=== PATIENT | male | born 1990 | race Caucasian/White ===

== ENCOUNTER 2018-01-04 16:19 | Emergency (ER) | payer OTHER ==
[2018-01-04 18:05] VITALS: BP 148/81
[2018-01-04] MEDS ORDERED: Ketorolac INJ* 30 MG/ML 1 ML VIAL IM ONE (18:22)
[2018-01-04] MEDS ORDERED: Ondansetron ODT TAB* 4 MG PO ONE (18:22)
--- NOTE | 2018-01-04 18:25 | ED ---
Headache - HPI Summary HPI Summary: pt presents for evaluation of his headaches. pt states he gets headaches regularly. he has had them since he was little. he took motrin at noon. he states it helped a little. he works night shifts. he states that he thinks night shifts are making it worse. he also complained that he was concerned he is getting a sinus infection. he denies any congestion but he feels fullness to his face like when he gets a sinus infection. he denies any fever or chills or rhinorrhea. - History Of Current Complaint Chief Complaint: UCHeadache Stated Complaint: HEADACHE Hx Obtained From: Patient Onset/Duration: Gradual Onset Currently Pain Is: Mild Timing: Intermittent, Lasting: Character: Throbbing, Pressure, Typical Headache, Migraine Aggravating Factor: Other - lack of sleep Allevating Factors: Medication - motrin Associated Signs And Symptoms: Nausea - mild with headache - Allergies/Home Medications Allergies/Adverse Reactions: Allergies Allergy/AdvReac Type Severity Reaction Status Date / Time No Known Allergies Allergy Verified 01/04/18 17:59 Home Medications: Home Medications busPIRone TAB* [Buspar TAB*] 10 mg BID 01/04/18 [History Confirmed 01/04/18] PMH/Surg Hx/FS Hx/Imm Hx Previously Healthy: Yes Endocrine/Hematology History: Denies: Hx Anticoagulant Therapy Cardiovascular History: Denies: Hx Aneurysm Respiratory History: Denies: Hx Asthma GI History: Denies: Hx Cirrhosis History: Denies: Hx Acute Renal Failure Musculoskeletal History: Denies: Hx Arthritis EENT History: Denies: Hx Deafness Infectious Disease History: No Infectious Disease History: Denies: Traveled Outside the [place] in Last 30 Days - Family History Known Family History: Positive: Respiratory Disease Negative: Cardiac Disease, Hypertension - Social History Alcohol Use: None Substance Use Type: Reports: Marijuana Substance Use Comment - Amount & Last Used: "not very often"; 01/02/18 Smoking Status (MU): Heavy Every Day Tobacco Smoker Type: Cigarettes Amount Used/How Often: 1/2 PPD Length of Time of Smoking/Using Tobacco: 12 years Review of Systems Constitutional: Negative Eyes: Negative ENT: Negative Cardiovascular: Negative Respiratory: Negative Positive: Nausea. Negative: Abdominal Pain, Vomiting, Diarrhea Genitourinary: Negative Musculoskeletal: Negative Skin: Negative Positive: Headache. Negative: Weakness, Paresthesia, Numbness, Syncope, Slurred Speech Psychological: Normal All Other Systems Reviewed And Are Negative: No Physical Exam Triage Information Reviewed: Yes Vital Signs On Initial Exam: Initial Vitals Temp Pulse Resp BP Pulse Ox 98.5 F 55 16 148/81 99 01/04/18 18:00 01/04/18 18:00 01/04/18 18:00 01/04/18 18:00 01/04/18 18:00 Vital Signs Reviewed: Yes Appearance: Positive: Well-Appearing, No Pain Distress, Well-Nourished Skin: Positive: Warm, Dry Head/Face: Positive: Normal Head/Face Inspection Eyes: Positive: Normal, EOMI, SHARA ENT: Positive: Normal ENT inspection, Hearing grossly normal, Pharynx normal Neck: Positive: Supple, Nontender Respiratory/Lung Sounds: Positive: Clear to Auscultation, Breath Sounds Present Cardiovascular: Positive: Normal, RRR Abdomen Description: Positive: Nontender, Soft Bowel Sounds: Positive: Present Musculoskeletal: Positive: Normal, Strength/ROM Intact Neurological: Positive: Normal, Sensory/Motor Intact, CN Intact II-III Psychiatric: Positive: Normal AVPU Assessment: Alert Diagnostics - Vital Signs Vital Signs Temp Pulse Resp BP Pulse Ox 01/04/18 18:00 98.5 F 55 16 148/81 99 - Laboratory Lab Statement: Any lab studies that have been ordered have been reviewed, and results considered in the medical decision making process. Headache Course/Dx - Course Course Of Treatment: I had a discussion with the patient regarding migraines and taking tylenol and motrin early on during his headache. I also discussed with him smoking cessation for 3 minutes. he and his are interested in quitting. he has smoked for 15 years. pt was given smoking cessation information prior to discharge. pt encouraged to f/u with pcp. - Diagnoses Provider Diagnoses: Migraine Discharge - Sign-Out/Discharge Documenting (check all that apply): Patient Departure All imaging exams completed and their final reports reviewed: No Studies - Discharge Plan Condition: Stable Disposition: HOME Patient Education Materials: Acute Headache (ED) Referrals: Carlos Smith MD [Primary Care Provider] - Additional Instructions: Please follow up with your primary care physician. return if worse or any new symptoms. Take tylenol and motrin for pain. - Billing Disposition and Condition Condition: STABLE Disposition: Home
== END 2018-01-04 18:51 | disposition home or self-care (01) ==
LOC: UCCORT 16:19
DX: G43.909 Migraine, unspecified, not intractable, without status migrainosus (principal); F17.210 Nicotine dependence, cigarettes, uncomplicated
CPT/HCPCS: 96372; 99212; A9270-GY; G0463; J1885

== ENCOUNTER 2018-05-30 18:10 | Emergency (ER) | payer BC, OTHER ==
[2018-05-30 19:29] VITALS: BP 160/75
[2018-05-30] MEDS ORDERED: Albuterol/Ipratropium NEB.SOL* Albuterol 2.5 MG/Ipratropium 0.5 MG 3 ML INH ONE (19:35)
--- NOTE | 2018-05-30 20:30 | UC ---
Respiratory Complaint HPI - HPI Summary HPI Summary: Ill for 2 days with cough. Patient states he has a normal cough because of his smoking but it's worse over the past 2 days. Denies any fever or chills. - History of Current Complaint Chief Complaint: UCRespiratory Stated Complaint: COUGH,CHILLS Time Seen by Provider: 05/30/18 19:27 Hx Obtained From: Patient Onset/Duration: Gradual Onset Severity Initially: Mild Severity Currently: Mild Pain Intensity: 0 Character: Cough: Nonproductive Aggravating Factors: Nothing Alleviating Factors: Nothing Associated Signs And Symptoms: Positive: Chills. Negative: Dyspnea, Fever, Wheezing - Risk Factors Pulmonary Embolism Risk Factors: Negative Cardiac Risk Factors: Negative Pseudomonas Risk Factors: Negative Tuberculosis Risk Factors: Negative - Allergies/Home Medications Allergies/Adverse Reactions: Allergies Allergy/AdvReac Type Severity Reaction Status Date / Time No Known Allergies Allergy Verified 05/30/18 19:29 PMH/Surg Hx/FS Hx/Imm Hx Previously Healthy: Yes - denies any chronic illnesses Other History Of: Negative For: Anticoagulant Therapy - Surgical History Surgical History: None - Family History Known Family History: Positive: Respiratory Disease Negative: Cardiac Disease, Hypertension - Social History Occupation: Employed Full-time Alcohol Use: None Substance Use Type: Marijuana Substance Use Comment - Amount & Last Used: daily use Smoking Status (MU): Heavy Every Day Tobacco Smoker Type: Cigarettes Amount Used/How Often: 1 ppd Length of Time of Smoking/Using Tobacco: since age 12 Review of Systems All Other Systems Reviewed And Are Negative: Yes Constitutional: Positive: Chills Respiratory: Positive: Cough - Nonproductive Neurological: Positive: Headache - Mild headache tonight Physical Exam Triage Information Reviewed: Yes Appearance: Well-Appearing, No Pain Distress, Well-Nourished Vital Signs: Initial Vital Signs Temp 98.2 F 05/30/18 19:24 Pulse 48 05/30/18 19:24 Resp 16 05/30/18 19:24 BP 160/75 05/30/18 19:24 Pulse Ox 100 05/30/18 19:24 Vital Signs Reviewed: Yes Eye Exam: Normal ENT Exam: Normal ENT: Positive: Nasal congestion Neck exam: Normal Neck: Positive: Supple, Nontender, No Lymphadenopathy Respiratory: Positive: Rhonchi, Wheezing - Mild rhonchi and wheezing with forced expiration, no distress Cardiovascular Exam: Normal Musculoskeletal Exam: Normal Neurological Exam: Normal Psychological Exam: Normal Skin Exam: Normal UC Diagnostic Evaluation - Laboratory O2 Sat by Pulse Oximetry: 100 Respiratory Course/Dx - Course Course Of Treatment: The patient was given a DuoNeb treatment and felt like he was breathing much easier. He continues to have scattered rhonchi therefore a chest x-ray was done which showed a possible retrocardiac infiltrate. X-ray was reviewed by myself and Dr. Vences. The patient will be discharged on Zithromax and an albuterol inhaler. He was strongly advised to stop smoking. - Differential Dx/Diagnosis Provider Diagnosis: Bronchitis, Community acquired pneumonia Discharge - Sign-Out/Discharge Documenting (check all that apply): Patient Departure All imaging exams completed and their final reports reviewed: No - Discharge Plan Condition: Good Disposition: HOME Prescriptions: Albuterol HFA INHALER* [Ventolin HFA Inhaler*] 2 puff INH Q4H PRN 5 Days #1 mdi PRN Reason: Wheezing Azithromycin TAB* [Zithromax TAB (Z-ANA) 250 mg #6 tabs] 250 mg PO DAILY 4 Days #4 tab Patient Education Materials: Acute Bronchitis (ED) Referrals: Carlos Smith MD [Primary Care Provider] - Additional Instructions: Increase fluids, stop smoking. Use the albuterol inhaler 2 puffs every 4-6 hours as needed for wheezing. Fill the prescription for the Zithromax tomorrow. Your given the first doses of Zithromax in the urgent care center. Your to follow-up with your primary care provider if no improvement in 2 or 3 days. Go to the emergency room with any worsening symptoms. - Billing Disposition and Condition Condition: GOOD Disposition: Home - Attestation Statements Provider Attestation: I was available for consult. This patient was seen by the HEATHER. The patient was not presented to, seen by, or examined by me. -[place]
[2018-05-30] MEDS ORDERED: Azithromycin TAB* 250 MG PO ONE (20:57)
--- NOTE | 2018-06-01 07:58 | UC ---
- Progress Note Progress Note: Patient Name: ABI GUAMAN Medical Record#: [id number] Ordering Physician: Jessie Guerrero [employer] Acct.#: [id number] : 1990 Age: 28 Sex: M Location: URGENT [facility] Exam Date: 05/30/182020 ADM Status: DEP ER Order Information: CHEST PA & LAT 2 VWS Accession Number: [id number] CPT: 81604 HISTORY: loose cough COMPARISONS: None VIEWS: 4: Frontal dual-energy and lateral views of the chest. FINDINGS: CARDIOMEDIASTINAL SILHOUETTE: The cardiomediastinal silhouette is normal. MAURY: The maury are normal. PLEURA: The costophrenic angles are sharp. No pleural abnormalities are noted. LUNG PARENCHYMA: There is hyperinflation with flattening of the diaphragm and expansion of the AP diameter of the chest. ABDOMEN: The upper abdomen is clear. There is no subphrenic gas. BONES AND SOFT TISSUES: No bone or soft tissue abnormalities are noted. OTHER: None. IMPRESSION: HYPERINFLATION, CONSISTENT WITH COPD. NO ACTIVE CARDIOPULMONARY DISEASE. R2 Preliminary Imaging Read R2 <Electronically signed by Juancho Geller MD in OV> 05/31/18756 Dictated By: Juancho Geller MD Dictated Date/Time: 05/31/18756 Transcribed Date/Time: 05/31/18755 Copy to: CC:Carlos Smith MD; Jessie Guerrero [employer]; Jes Vences MD Imaging - [facility] Imaging - [facility] [address] [address] ph ([phone]) ph ([phone]) ph ([phone]) This report is only to be considered final once signed by the Provider(s) as displayed in the "<Electronically Signed by >" field (s). Absence of a signature indicates the report is in a draft status and still needs to be finalized. In the event this document was created by someone other than the signing Provider, the individual initiating the document will be listed in the "Entered by:" or "Dictated by:" weber. 1 of 2 Course/Dx - Diagnoses Provider Diagnoses: Bronchitis, Community acquired pneumonia Discharge - Sign-Out/Discharge Documenting (check all that apply): Post-Discharge Follow Up All imaging exams completed and their final reports reviewed: Yes - Discharge Plan Condition: Good Disposition: HOME Prescriptions: Albuterol HFA INHALER* [Ventolin HFA Inhaler*] 2 puff INH Q4H PRN 5 Days #1 mdi PRN Reason: Wheezing Azithromycin TAB* [Zithromax TAB (Z-ANA) 250 mg #6 tabs] 250 mg PO DAILY 4 Days #4 tab Patient Education Materials: Acute Bronchitis (ED) Referrals: Carlos Smith MD [Primary Care Provider] - Additional Instructions: Increase fluids, stop smoking. Use the albuterol inhaler 2 puffs every 4-6 hours as needed for wheezing. Fill the prescription for the Zithromax tomorrow. Your given the first doses of Zithromax in the urgent care center. Your to follow-up with your primary care provider if no improvement in 2 or 3 days. Go to the emergency room with any worsening symptoms. - Billing Disposition and Condition Condition: GOOD Disposition: Home
== END 2018-05-30 21:13 | disposition home or self-care (01) ==
LOC: UCCORT 18:10
DX: J40 Bronchitis, not specified as acute or chronic (principal); J18.9 Pneumonia, unspecified organism; F17.210 Nicotine dependence, cigarettes, uncomplicated
CPT/HCPCS: 71046; 99212; A9270-GY; G0463